=== PATIENT | female | born 1945 | race Caucasian/White ===

== ENCOUNTER 2018-02-27 13:14 | Outpatient (CLI) | payer BC ==
--- NOTE | 2018-02-27 13:43 | RAD ---
PA AND LATERAL CHEST: Indication: Dyspnea. FINDINGS: There is stable cardiomegaly. Chronic lung changes are similar. Elevation of the right hemidiaphragm is similar. Chronic osseous changes are stable. Cholecystectomy clips are again noted in the right up per quadrant. IMPRESSION: Stable exam. No acute abnormality. POS: CANDELARIA
== END 2018-02-27 13:15 | disposition home or self-care (01) ==
LOC: RAD 13:14
PROVIDERS: ATTEND Internal Medicine Critical Care Medicine
DX: R06.00 Dyspnea, unspecified (principal)
CPT/HCPCS: 71046